=== PATIENT | male | born 1965 | race Two or more races ===

== ENCOUNTER 2024-06-03 09:27 | Emergency (ER) | payer MEDICAID, SELFPAY ==
[2024-06-03 09:28] VITALS: BMI 29.2
[2024-06-03 09:43] VITALS: BP 138/87; PULSE 87; RESP 20; TEMP 36.9; O2SAT 96
[2024-06-03 09:44] VITALS: BMI 29.2
--- NOTE | 2024-06-03 09:45 | XR_ITS ---
Examination: Ultrasound-guided paracentesis Abdominal sonogram limited Date and time of exam: June 03, 2024 1106 hours INDICATIONS: Cirrhosis, increasing ascites and abdominal distention this week Informed consent provided. A timeout was completed verifying correct patient, procedure, site, positioning, and special adequate movement if applicable. Technique: Multiple sonographic images of the abdomen have been obtained. Appropriate area for paracentesis was marked. Local anesthesia is obtained with 1% lidocaine. Yueh catheter is successfully introduced. Findings: Abdominal sonographic images demonstrate sufficient ascitic fluid for paracentesis. After placing the Yueh catheter, 3600 cc of fluid were successfully removed. During and after completion of the procedure the patient appear in satisfactory and stable condition with no complications observed. Estimated blood loss 0 cc Impression: Abdominal ascites Successful ultrasound-guided paracentesis as described above
--- NOTE | 2024-06-03 12:15 | EDNOTE_ITS ---
ED General RME/HPI General Chief complaint: General Adult/Misc Complain Stated complaint: NEEDS ABD DRAINED Time Seen by Provider: 06/03/24 09:28 Arrival date/time: 06/03/24 09:27 58-year-old male with cirrhosis currently on hospice presents to the emergency department requesting paracentesis patient reports he spoke with his hospice provider who reports he can go to the emergency department to get a paracentesis and will make him comfortable. Patient reports no chest pain or shortness of breath patient reports he is only here for paracentesis Limitations: no limitations Related Data Home Medications ?Medication ?Instructions ?Recorded ?Confirmed hydroxyzine pamoate 50 mg capsule 50 mg PO Q6H PRN Anaphylaxis 02/06/19 02/06/19 (Vistaril) magnesium oxide-magnesium amino 400 cap PO 02/06/19 acid chelate 300 mg capsule (Magnesium (oxide/AA chelate)) quetiapine 300 mg tablet 300 mg PO BID 02/06/19 02/06/19 trazodone 100 mg tablet 100 mg PO QDAY 02/06/19 02/06/19 Previous Rx's ?Medication ?Instructions ?Recorded hydroxyzine pamoate 50 mg capsule 50 mg PO BID PRN itching #30 caps 02/06/19 magnesium oxide 400 mg (241.3 mg 400 mg PO QDAY #14 tabs 02/06/19 magnesium) tablet quetiapine 300 mg tablet (Seroquel) 300 mg PO QDAY #15 tabs 02/06/19 trazodone 100 mg tablet 100 mg PO QDAY #14 tabs 02/06/19 quetiapine 300 mg tablet 300 mg PO .qhs #30 tabs 03/08/19 Allergies Allergy/AdvReac Type Severity Reaction Status Date / Time No Known Allergies Allergy Verified 06/03/24 09:30 Review of Systems Review of Systems Systems Reviewed: All systems reviewed, normal except as documented Constitutional Constitutional: Reports system reviewed and no additional complaints, except as documented, Denies fever(s) and Denies headache(s) Eyes Eyes: Reports system reviewed and no additional complaints, except as documented and Denies blurry vision ENT Ears, Nose, Mouth, and Throat: Reports system reviewed and no additional complaints, except as documented, Denies headache(s), Denies nasal congestion and Denies nasal discharge Cardiovascular Cardiovascular: Reports system reviewed and no additional complaints, except as documented, Denies chest pain and Denies dyspnea Respiratory Respiratory: Reports system reviewed and no additional complaints, except as documented, Denies chest congestion, Denies cough and Denies dyspnea Gastrointestinal Gastrointestinal: Reports system reviewed and no additional complaints, except as documented, Reports abdominal pain, Denies nausea and Denies vomiting Integumentary/Breasts Skin/Breast: Reports system reviewed and no additional complaints, except as documented and Denies rash Neurologic Neurologic: Reports system reviewed and no additional complaints, except as documented, Reports as per HPI and Denies headache(s) Past Medical History Past Medical History NEUROLOGIC: Negative Neurological Disorders CARDIAC: Negative Cardiac Disorders or Congestive Heart Failure RESPIRATORY: Positive Asthma and Pneumonia; Negative Chronic Obstructive Pulmonary Disease (COPD) GASTROINTESTINAL: Positive Cirrhosis GENITOURINARY: Negative Genitourinary Disorders or Renal Disease ENDOCRINE: Negative Endocrine Disorders, Diabetes Mellitus Type 1 or Diabetes Mellitus Type 2 HEMATOLOGIC: Negative Sickle Cell Disease OTHER HISTORY: Positive Cancer Family History FAMILY HISTORY: Negative Family Cardiac Disorders Surgical History SURGICAL: Negative Abdominal Surgery Social History SMOKING STATUS: Never smoker ED Exam General Limitations: Present no limitations General appearance: Present alert and in no apparent distress Head Head exam: Present atraumatic Eye Eye exam: Present normal appearance, PERRL and EOMI ENT ENT exam: Present normal exam, normal oropharynx and mucous membranes moist Neck Neck exam: Present normal inspection, full ROM and trachea midline Chest Chest inspection: Present normal inspection and symmetric chest wall rise Respiratory Respiratory exam: Present normal lung sounds bilaterally Cardiovascular Cardiovascular exam: Present regular rate, normal rhythm and normal heart sounds Abdominal Exam Abdominal exam: Present soft, distention, normal bowel sounds and ascites; Absent tenderness, guarding, rebound or rigidity Extremities Exam Extremities exam: Present normal inspection and full ROM Back Exam Back exam: Present normal inspection and full ROM Neurological Exam Neurological exam: Present alert, oriented X3 and CN II-XII intact Psychiatric Psychiatric exam: Present normal affect and normal mood Skin Skin exam: Present warm, dry, intact and normal color Course Quality Measures none Orders Category Date Time Status US paracentesis abd w/image Stat Exams 06/03/24 09:45 Completed Lidocaine 1% Pf 30 ml [Xylocaine 1% Pf 30 ml] Med 06/03/24 11:13 Discontinued 30 ml .ROUTE .STK-MED ONE Vital Signs Vital signs: Vital Signs Temperature 98.4 F 11/19/24 09:43 Pulse Rate 87 06/03/24 09:43 Respiratory Rate 20 06/03/24 09:43 Blood Pressure 138/87 H 06/03/24 09:43 Pulse Oximetry (%) 96 06/03/24 09:43 Oxygen Delivery Method Room Air 06/03/24 09:43 O2 saturation 96% room air within normal limits [facility] Patient data External records reviewed:: [facility] previous records Clinical information provided by:: patient Social determinants that could affect healthcare access:: alcohol use Patient has the following chronic illnesses:: History How is presenting disease/condition affected by chronic disease/condition?: caused by Evaluation data The following diagnostics were reviewed and interpreted by me:: radiology exam(s) Lab and/or radiology exams considered but not ordered:: Radiology obtained Interpretation Summary: Reviewed by me Medications Medications considered but not ordered:: Given Medication administrations:: Medication Administration History Discontinued Medications Lidocaine HCl (Lidocaine Inj Pf 1% 30 Ml Vial) Confirm Administered Dose 30 ml .ROUTE .[facility] Stop: 06/03/24 11:14 Given Consultations Consultation(s) initiated? (list below): No Diagnosis Differential Diagnosis ED Complaint MDM: Encounter for paracentesis, cirrhosis, ascites Most likely diagnosis given after review of the tests above:: Encounter for paracentesis, cirrhosis Admission Indicated Admission indicated?: not indicated Explain why admission is indicated or not indicated:: No criteria Admission Request Was there a request for admission?: No Disposition Plan Disposition Plan: Discharge Discharge Attestation Discharge Attestation: The patient and all family members were given an opportunity to ask questions and understood the discharge instructions. Discharge instructions specifically effects, indications for sooner follow up or return to the emergency department, and the expected course of current diagnosis. Patient condition: Stable Medical Decision Making MDM Narrative MDM Narrative: 58-year-old male with cirrhosis currently on hospice presents to the emergency department requesting paracentesis patient reports he spoke with his hospice provider who reports he can go to the emergency department to get a paracentesis and will make him comfortable. Patient reports no chest pain or shortness of breath patient reports he is only here for paracentesis On exam patient appears chronically ill but not toxic Patient hemodynamically stable Paracentesis completed I spoke with the patient after his paracentesis patient reports he feels better at the time of discharge patient reports no chest pain or shortness of breath Patient discharged home in no distress to follow-up with primary care doctor in the next 24 to 48 hours and for any worsening symptoms to return to the ER immediately Differential Diagnosis Differential Diagnosis: Encounter for paracentesis, cirrhosis, ascites Medical Records Medical records reviewed: Yes I reviewed the patient's medical records. Lab Data Lab results reviewed: Yes I reviewed the patient's lab results. Radiology Data Radiology results reviewed: Yes I reviewed the patient's radiology results. Discharge Plan Plan Patient Disposition: HOME (Self Care) Disposition Comment: Stable Prescriptions/Referrals Prescriptions/Med Rec: No Action quetiapine 300 mg Tablet 300 mg PO BID hydroxyzine pamoate [Vistaril] 50 mg Capsule 50 mg PO Q6H PRN (Reason: Anaphylaxis) trazodone 100 mg Tablet 100 mg PO QDAY Magnesium (oxide/AA chelate) 300 mg Capsule 400 cap PO hydroxyzine pamoate 50 mg capsule 50 mg PO BID PRN (Reason: itching) Qty: 30 0RF quetiapine [Seroquel] 300 mg tablet 300 mg PO QDAY Qty: 15 0RF Rx Instructions: Take 1 tablet by mouth every night at bedtime for psychosis trazodone 100 mg tablet 100 mg PO QDAY Qty: 14 0RF magnesium oxide 400 mg (241.3 mg magnesium) tablet 400 mg PO QDAY Qty: 14 0RF quetiapine 300 mg tablet 300 mg PO .qhs Qty: 30 3RF Referrals: Rajendra Soto MD [Primary Care Provider] - Problem List Clinical Impression: Cirrhosis, Ascites Patient/Caregiver Discharge Instructions Education Materials: Paracentesis Dc Additional Instructions: Please follow up with your primary care doctor in the next 24-48hrs for any worsening symptoms return here immediately Print Language: [place] Citizen Stand Alone Forms: Shyanne Award Info., Patient Portal Info Letter Attestation Attestation The patient was seen by the midlevel practitioner. I, the co-signing physician, was present during the entire ER visit. While I did not physically examine the patient, I was available for consultation as needed.
== END 2024-06-03 12:22 | disposition home or self-care (01) ==
PROVIDERS: Emergency Provider Emergency Medicine; PCP Family Medicine
DX: K74.60 Unspecified cirrhosis of liver (principal); R18.8 Other ascites
CPT/HCPCS: 49083; 99284; C1729

== ENCOUNTER 2024-06-12 04:33 | Emergency (ER) | payer MEDICAID, SELFPAY ==
[2024-06-12 04:44] VITALS: BP 144/86; PULSE 104; RESP 22; TEMP 36.9; O2SAT 97; BMI 29.2
--- NOTE | 2024-06-12 04:48 | PD.EDRME ---
Rapid Medical Screening Exam RME Arrival date/time: 06/12/24 04:33 58M with history of psych and cancer (on hospice) presents to ED requesting para due to ab distention/discomfort. Chief Complaint: General Adult/Misc Complain Vital signs: Vital Signs Temperature 98.5 F 06/12/24 04:44 Pulse Rate 104 H 06/12/24 04:44 Respiratory Rate 22 H 06/12/24 04:44 Blood Pressure 144/86 H 06/12/24 04:44 Pulse Oximetry (%) 97 06/12/24 04:44 Oxygen Delivery Method Room Air 06/12/24 04:44
--- NOTE | 2024-06-12 06:07 | EDNOTE_ITS ---
ED General RME/HPI General Chief complaint: General Adult/Misc Complain Stated complaint: needs to be tapped Time Seen by Provider: 06/12/24 06:07 Arrival date/time: 06/12/24 04:33 Limitations: no limitations RME / HPI RME / HPI narrative: 06/12/24 04:33 58M with history of psych and cancer (on hospice) presents to ED requesting para due to ab distention/discomfort. IR is not available. Patient does not have an emergency condition at this time Related Data Home Medications ?Medication ?Instructions ?Recorded ?Confirmed hydroxyzine pamoate 50 mg capsule 50 mg PO Q6H PRN Anaphylaxis 02/06/19 02/06/19 (Vistaril) magnesium oxide-magnesium amino 400 cap PO 02/06/19 acid chelate 300 mg capsule (Magnesium (oxide/AA chelate)) quetiapine 300 mg tablet 300 mg PO BID 02/06/19 02/06/19 trazodone 100 mg tablet 100 mg PO QDAY 02/06/19 02/06/19 Previous Rx's ?Medication ?Instructions ?Recorded hydroxyzine pamoate 50 mg capsule 50 mg PO BID PRN itching #30 caps 02/06/19 magnesium oxide 400 mg (241.3 mg 400 mg PO QDAY #14 tabs 02/06/19 magnesium) tablet quetiapine 300 mg tablet (Seroquel) 300 mg PO QDAY #15 tabs 02/06/19 trazodone 100 mg tablet 100 mg PO QDAY #14 tabs 02/06/19 quetiapine 300 mg tablet 300 mg PO .qhs #30 tabs 03/08/19 Allergies Allergy/AdvReac Type Severity Reaction Status Date / Time No Known Allergies Allergy Verified 06/03/24 09:30 Review of Systems Review of Systems Systems Reviewed: All systems reviewed, normal except as documented ED Exam General Limitations: Present no limitations General appearance: Present alert Eye Eye exam: Present scleral icterus Chest Chest inspection: Present normal inspection Respiratory Respiratory exam: Present normal lung sounds bilaterally Cardiovascular Cardiovascular exam: Present regular rate and normal rhythm Abdominal Exam Abdominal exam: Present soft, distention and normal bowel sounds Extremities Exam Extremities exam: Present pedal edema Skin Skin exam: Present warm and dry Course Quality Measures none Orders Category Date Time Status US paracentesis abd w/image Stat Exams 06/12/24 04:48 Ordered Vital Signs Vital signs: Vital Signs Temperature 98.5 F 06/12/24 04:44 Pulse Rate 104 H 06/12/24 04:44 Respiratory Rate 22 H 06/12/24 04:44 Blood Pressure 144/86 H 06/12/24 04:44 Pulse Oximetry (%) 97 06/12/24 04:44 Oxygen Delivery Method Room Air 06/12/24 04:44 [facility] Patient data External records reviewed:: [facility] previous records Clinical information provided by:: patient Social determinants that could affect healthcare access:: none Patient has the following chronic illnesses:: Cirrhosis How is presenting disease/condition affected by chronic disease/condition?: caused by Evaluation data The following diagnostics were reviewed and interpreted by me:: other (specify) Lab and/or radiology exams considered but not ordered:: NA Interpretation Summary: NA Medications Medications considered but not ordered:: NA Medication administrations:: NA Consultations Consultation(s) initiated? (list below): No Diagnosis Differential Diagnosis ED Complaint MDM: NA Most likely diagnosis given after review of the tests above:: NA Admission Indicated Admission indicated?: not indicated Explain why admission is indicated or not indicated:: NA Admission Request Was there a request for admission?: No Disposition Plan Disposition Plan: Discharge Discharge Attestation Discharge Attestation: The patient and all family members were given an opportunity to ask questions and understood the discharge instructions. Discharge instructions specifically effects, indications for sooner follow up or return to the emergency department, and the expected course of current diagnosis. Patient condition: Stable Medical Decision Making Differential Diagnosis Differential Diagnosis: NA Discharge Plan Plan Patient Disposition: HOME (Self Care) Patient condition on transfer: Stable Prescriptions/Referrals Prescriptions/Med Rec: No Action quetiapine 300 mg Tablet 300 mg PO BID hydroxyzine pamoate [Vistaril] 50 mg Capsule 50 mg PO Q6H PRN (Reason: Anaphylaxis) trazodone 100 mg Tablet 100 mg PO QDAY Magnesium (oxide/AA chelate) 300 mg Capsule 400 cap PO hydroxyzine pamoate 50 mg capsule 50 mg PO BID PRN (Reason: itching) Qty: 30 0RF quetiapine [Seroquel] 300 mg tablet 300 mg PO QDAY Qty: 15 0RF Rx Instructions: Take 1 tablet by mouth every night at bedtime for psychosis trazodone 100 mg tablet 100 mg PO QDAY Qty: 14 0RF magnesium oxide 400 mg (241.3 mg magnesium) tablet 400 mg PO QDAY Qty: 14 0RF quetiapine 300 mg tablet 300 mg PO .qhs Qty: 30 3RF Referrals: Sudhir Mclaughlin PA-C [Primary Care Provider] - In 1 week Problem List Clinical Impression: Ascites Patient/Caregiver Discharge Instructions Discharge Activity: activity as tolerated Education Materials: ED Ascites Print Language: Slovak Stand Alone Forms: Shyanne Award Info., Patient Portal Info Letter
== END 2024-06-12 07:05 | disposition home or self-care (01) ==
PROVIDERS: Emergency Provider Emergency Medicine; PCP Physician Assistant
DX: R18.8 Other ascites (principal)
CPT/HCPCS: 80053; 85025; 85610; 85730; 99284

== ENCOUNTER 2024-06-16 09:18 | Emergency (ER) | payer MEDICAID, SELFPAY ==
[2024-06-16 09:27] VITALS: BP 123/87; PULSE 94; RESP 22; TEMP 36.8; O2SAT 95; BMI 31.6
--- NOTE | 2024-06-16 09:51 | PD.EDRME ---
Rapid Medical Screening Exam RME Arrival date/time: 06/16/24 09:18 58-year-old male with cirrhosis currently on hospice presents to the emergency department requesting paracentesis. I have greeted and performed a focused initial assessment of this patient. Initial appropriate labs ordered at this time. A comprehensive ED assessment and evaluation of the patient and analysis of all test and completion of medical decision making process will be conducted by additional ED provider. Chief Complaint: Abdominal Pain Time Seen by Provider: 06/16/24 09:37 Vital signs: Vital Signs Temperature 98.2 F 06/16/24 09:27 Pulse Rate 94 06/16/24 09:27 Respiratory Rate 22 H 06/16/24 09:27 Blood Pressure 123/87 H 06/16/24 09:27 Pulse Oximetry (%) 95 06/16/24 09:27 Oxygen Delivery Method Room Air 06/16/24 09:27
[2024-06-16 12:02] LABS: INR 1.4 (0.9-1.3); Prothrombin Time 15.2 Seconds (9.0-12.2)
[2024-06-16 12:30] LABS: Basophils % (Auto) 1 % (0-2.5); Eosinophils # (Auto) 0.1 Thou/mm3 (0.0-0.5); Eosinophils % (Auto) 2 % (0-10); Hemoglobin 12.5 g/dL (13.5-16.0); Immature Granulocytes % (Auto) 0 % (0-0); Immature Granulocytes Auto 0.03 Thou/mm3 (0.00-0.00); Lymphocytes # (Auto) 0.7 Thou/mm3 (1.0-4.8); Lymphocytes % (Auto) 8 % (10-50); Mean Corpuscular HGB Conc 33.8 g/dl (31.0-37.0); Mean Corpuscular Hemoglobin 32.6 pg (25.0-35.0); Mean Corpuscular Volume 96 fL (80-100); Monocytes # (Auto) 0.6 Thou/mm3 (0.0-0.8); Monocytes % (Auto) 7 % (0-12); Neutrophils # (Auto) 7.1 Thou/mm3 (1.8-7.7); Neutrophils % (Auto) 82 % (37-80); Nucleated Red Blood Cell % 0 /100 WBC (0); Platelet Count 94 Thou/mm3 (140-440); RDW Standard Deviation 55.8 fL (35.1-43.9); Red Blood Count 3.84 Miln/mm3 (4.50-5.90); White Blood Count 8.6 Thou/mm3 (3.8-10.6)
--- NOTE | 2024-06-16 13:27 | PC.NURSE ---
PATIENT OBSERVED BY RN AND SECURITY GETTING INTO VEHICLE AND LEAVING.
== END 2024-06-16 13:29 | disposition left against medical advice (07) ==
PROVIDERS: Nurse Practitioner Primary Care; Emergency Provider Emergency Medicine; PCP Family Medicine
DX: R10.9 Unspecified abdominal pain (principal); Z53.29 Procedure and treatment not carried out because of patient's decision for other reasons
CPT/HCPCS: 36415; 85025; 85610; 99284

== ENCOUNTER 2024-07-09 13:00 | Emergency (ER) | payer MEDICAID, SELFPAY ==
[2024-07-09 13:00] VITALS: BP 104/62; PULSE 119; RESP 17; TEMP 36.8; O2SAT 95
--- NOTE | 2024-07-09 13:18 | EDNOTE_ITS ---
<Statement entered by Bernie Rene MD - 07/10/24 17:07> As co-signing physician, I was present and available for consult prn. I concur with the plan and care as documented by the midlevel provider. ED General RME/HPI General Chief complaint: Weakness Stated complaint: FALL/ WEAKNESS Time Seen by Provider: 07/09/24 13:16 Arrival date/time: 07/09/24 13:00 CC: Weakness back pain HPI patient is on hospice DNR/DNI per report from EMS who reports stable vital signs patient was found by family members on the floor hunched over in the bathroom after being too weak, and into much pain to get up. Patient has a history of ascites cirrhosis. EMS reports the patient is a Glascow coma of 15 however when I spoke with him the patient is just nodding to answers. At 1349 after the patient was settled into a bed the patient states his back pain is getting better , states he takes morphine for pain. He is requesting a little bit more maybe morphine to make him feel even better. Related Data Home Medications ?Medication ?Instructions ?Recorded ?Confirmed hydroxyzine pamoate 50 mg capsule 50 mg PO Q6H PRN Anaphylaxis 02/06/19 02/06/19 (Vistaril) magnesium oxide-magnesium amino 400 cap PO 02/06/19 acid chelate 300 mg capsule (Magnesium (oxide/AA chelate)) quetiapine 300 mg tablet 300 mg PO BID 02/06/19 02/06/19 trazodone 100 mg tablet 100 mg PO QDAY 02/06/19 02/06/19 Previous Rx's ?Medication ?Instructions ?Recorded hydroxyzine pamoate 50 mg capsule 50 mg PO BID PRN itching #30 caps 02/06/19 magnesium oxide 400 mg (241.3 mg 400 mg PO QDAY #14 tabs 02/06/19 magnesium) tablet quetiapine 300 mg tablet (Seroquel) 300 mg PO QDAY #15 tabs 02/06/19 trazodone 100 mg tablet 100 mg PO QDAY #14 tabs 02/06/19 quetiapine 300 mg tablet 300 mg PO .qhs #30 tabs 03/08/19 Allergies Allergy/AdvReac Type Severity Reaction Status Date / Time No Known Allergies Allergy Verified 06/16/24 09:19 Review of Systems Review of Systems ROS Unobtainable: unobtainable due to mental status Narrative Review of Systems: GEN: No fever, no chills, no weight loss EYES: No discharge, no visual changes, no pain HEENT: No ear pain, no congestion, no sore throat PULM: No shortness of breath, no cough, no congestion CV: No chest pain, no dyspnea on exertion, no palpitations GI: No nausea, no vomiting, no diarrhea, no pain, no constipation : No frequency, no urgency, no dysuria MUSC/SKEL: No joint pain, no back pain SKIN: No rash PSYCH: No hallucinations, no depression HEME/LYMPH: No easy bleeding or bruising tendencies NEURO: + weakness, no headache Past Medical History Past Medical History NEUROLOGIC: Negative Neurological Disorders CARDIAC: Negative Cardiac Disorders or Congestive Heart Failure RESPIRATORY: Positive Asthma and Pneumonia; Negative Chronic Obstructive Pulmonary Disease (COPD) GASTROINTESTINAL: Positive Cirrhosis GENITOURINARY: Negative Genitourinary Disorders or Renal Disease ENDOCRINE: Negative Endocrine Disorders, Diabetes Mellitus Type 1 or Diabetes Mellitus Type 2 HEMATOLOGIC: Negative Sickle Cell Disease OTHER HISTORY: Positive Cancer Family History FAMILY HISTORY: Negative Family Cardiac Disorders Surgical History SURGICAL: Negative Abdominal Surgery Social History SMOKING STATUS: Never smoker ED Exam Narrative Physical exam: [General: Thin, emaciated, ill kempt, fecalith covered but appears not in any acute distress. Head normocephalic HEENT: Mouth lips oral mucosa dry and pale eyes: Sclera is icteric pupils tracking PERRLA EOMs intact. Nose, dry no rhinorrhea. Neck is supple nontender Chest equal chest rise nontender to palpation Respiratory: Clear to auscultation no wheezes crackles or rubs CV: Rate rhythm is regular no murmurs rubs or clicks Abdomen is soft nontender no masses positive bowel sounds all 4 quadrants Back: No CVA tenderness no spinous process tenderness from cervical spine thoracic and lumbar spine Skin: Jaundice, intact no open lesions induration ulcerations Extremities: Moving all extremity weakly against resistance. Cap refill less than 2 seconds neurosensory intact bilateral nonpitting lower extremity edema. Neuro: Awake alert answering simple questions with nodding yes or no and mouthing words. Course Course Course Narrative: At 1515 the patient was asked what he would like me to do the patient states I want to feel better . I explained to him that have given him pain medications the patient states he is pain is better. The patient is giving me no specific instructions will include more fluids. Additional liter of fluid 1 mg of Ativan for morphine given to the patient at this time patient will be discharged back home again.PT case discussed wiht Dr Rene Quality Measures none Orders Category Date Time Status Saline [Insert IV] NOW Care 07/09/24 13:50 Active LORazepam [Ativan Inj] Med 07/09/24 16:51 Discontinued 1 mg IVP X1 ONE Morphine Inj Med 07/09/24 16:51 Discontinued 2 mg IVP X1 ONE Morphine Inj Med 07/09/24 13:50 Discontinued 4 mg IVP X1 ONE Ondansetron Inj [Zofran Inj] Med 07/09/24 13:50 Discontinued 4 mg IV X1 ONE Sodium Chloride 0.9% 1000 ml [Ns] 1,000 ml Med 07/09/24 15:19 Discontinued IV 999 mls/hr Sodium Chloride 0.9% 500 ml [Ns] 500 ml Med 07/09/24 13:51 Discontinued IV 999 mls/hr Vital Signs Vital signs: Vital Signs Temperature 98.2 F 07/09/24 13:00 Pulse Rate 119 H 07/09/24 13:00 Respiratory Rate 17 07/09/24 13:00 Blood Pressure 104/62 07/09/24 13:00 Pulse Oximetry (%) 95 07/09/24 13:00 Oxygen Delivery Method Room Air 07/09/24 13:00 [facility] Patient data External records reviewed:: [facility] previous records Clinical information provided by:: patient Social determinants that could affect healthcare access:: none Patient has the following chronic illnesses:: Ascites cirrhosis end-stage liver disease How is presenting disease/condition affected by chronic disease/condition?: exacerbated by Evaluation data The following diagnostics were reviewed and interpreted by me:: other (specify) (None) Lab and/or radiology exams considered but not ordered:: None Interpretation Summary: Patient is a DNR DNI hospice care per report. Patient given fluids and pain medication will be discharged back home. Medications Medications considered but not ordered:: None Medication administrations:: Medication Administration History Discontinued Medications Sodium Chloride (Ns) 500 mls @ 999 mls/hr IV .Q31M ONE Stop: 07/09/24 14:21 Last Infusion: 07/09/24 14:55 Dose: Infused Documented By: Admin: 07/09/24 14:21 Dose: 999 mls/hr Documented By: RENEE Sodium Chloride (Ns) 1,000 mls @ 999 mls/hr IV .Q1H1M ONE Stop: 07/09/24 16:19 Last Admin: 07/09/24 15:38 Dose: 999 mls/hr Documented By: LF Lorazepam (Lorazepam 2 Mg/Ml Vial) 1 mg IVP X1 ONE Stop: 07/09/24 16:52 Last Admin: 07/09/24 17:34 Dose: 1 mg Documented By: LF Morphine Sulfate (Morphine Sulf Inj 10 Mg/Ml Vial) 4 mg IVP X1 ONE Stop: 07/09/24 13:51 Last Admin: 07/09/24 14:22 Dose: 4 mg Documented By: LF Morphine Sulfate (Morphine Sulf Inj 10 Mg/Ml Vial) 2 mg IVP X1 ONE Stop: 07/09/24 16:52 Last Admin: 07/09/24 17:37 Dose: 2 mg Documented By: LF Ondansetron HCl (Ondansetron Inj 2 Mg/Ml Inj 2 Ml) 4 mg IV X1 ONE; Protocol Stop: 07/09/24 13:51 Last Admin: 07/09/24 14:22 Dose: 4 mg Documented By: LF None Consultations Consultation(s) initiated? (list below): No Diagnosis Differential Diagnosis ED Complaint MDM: Back pain, weakness liver cancer Most likely diagnosis given after review of the tests above:: Back pain weakness Admission Indicated Admission indicated?: indicated Explain why admission is indicated or not indicated:: Stable for discharge Admission Request Was there a request for admission?: No Disposition Plan Disposition Plan: Discharge Discharge Attestation Discharge Attestation: The patient and all family members were given an opportunity to ask questions and understood the discharge instructions. Discharge instructions specifically effects, indications for sooner follow up or return to the emergency department, and the expected course of current diagnosis. Patient condition: Stable Medical Decision Making Differential Diagnosis Differential Diagnosis: Back pain, weakness liver cancer Discharge Plan Plan Patient Disposition: HOME (Self Care) Patient condition on transfer: Stable Prescriptions/Referrals Prescriptions/Med Rec: No Action quetiapine 300 mg Tablet 300 mg PO BID hydroxyzine pamoate [Vistaril] 50 mg Capsule 50 mg PO Q6H PRN (Reason: Anaphylaxis) trazodone 100 mg Tablet 100 mg PO QDAY Magnesium (oxide/AA chelate) 300 mg Capsule 400 cap PO hydroxyzine pamoate 50 mg capsule 50 mg PO BID PRN (Reason: itching) Qty: 30 0RF quetiapine [Seroquel] 300 mg tablet 300 mg PO QDAY Qty: 15 0RF Rx Instructions: Take 1 tablet by mouth every night at bedtime for psychosis trazodone 100 mg tablet 100 mg PO QDAY Qty: 14 0RF magnesium oxide 400 mg (241.3 mg magnesium) tablet 400 mg PO QDAY Qty: 14 0RF quetiapine 300 mg tablet 300 mg PO .qhs Qty: 30 3RF Referrals: Rajendra Soto MD [Primary Care Provider] - In 1 week Problem List Clinical Impression: Intractable back pain, Cancer of liver Patient/Caregiver Discharge Instructions Education Materials: ED Chronic Pain Additional Instructions: Take the morphine is much as she needed at home for pain relief make sure you drink plenty of fluids. Print Language: Bur[place]ian Stand Alone Forms: Shyanne Award Info., Patient Portal Info Letter PA/DIAMOND Supervising Physician BRENT/DIAMOND Supervising Physician: Kecia Johns ENP
[2024-07-09 13:20] VITALS: PULSE 107; RESP 16; O2SAT 94; BMI 21.4
[2024-07-09] MEDS: SODIUM CHLORIDE 0.9% 500 ML 500 ML 999 ML IV (14:21)
[2024-07-09] MEDS: ONDANSETRON INJ 2 MG/ML INJ 2 ML 4 MG IV (14:22)
[2024-07-09] MEDS: MORPHINE SULF INJ 10 MG/ML VIAL 4 MG IVP (14:22)
[2024-07-09 14:53] VITALS: BP 103/62; PULSE 103; RESP 18; TEMP 37; O2SAT 95
--- NOTE | 2024-07-09 15:05 | PC.NURSE ---
PATIENTS DAUGHTER CONTACTED, I CONFIRMED WITH HER THAT PT IS IN HOSPICE CARE, DNR/DNI. SHE CONFIRMED HOSPICE STATUS. I INFORMED HER OF WHAT WE DID SO FAR. IVF/PAIN AND NAUSEA MEDS. WANTED TO CONFIRM HOW MUCH SHE WOULD LIKE US TO DO OTHER THAN COMFORT CARE. DAUGHTER STATES TO ASK PT WHAT HE WANTS AND IF HE CANT TALK TO CALL HER BACK. STATES SHE'S AT HOME WITH HER KIDS AND CANT COME RIGHT NOW.
[2024-07-09] MEDS: SODIUM CHLORIDE 0.9% 1000 ML 1,000 ML 999 ML IV (15:38)
[2024-07-09 17:00] VITALS: BP 110/62; PULSE 105; RESP 17; TEMP 36.7; O2SAT 96
[2024-07-09] MEDS: LORazepam 2 MG/ML VIAL 1 MG IVP (17:34)
[2024-07-09] MEDS: MORPHINE SULF INJ 10 MG/ML VIAL 2 MG IVP (17:37)
[2024-07-09 19:20] VITALS: BP 107/65; PULSE 97; RESP 17; TEMP 37.2; O2SAT 98
== END 2024-07-09 20:36 | disposition home or self-care (01) ==
PROVIDERS: Emergency Provider Emergency Medicine; PCP Family Medicine
DX: M54.9 Dorsalgia, unspecified (principal); C22.8 Malignant neoplasm of liver, primary, unspecified as to type
CPT/HCPCS: 96361; 96374; 96375; 96376; 99284; J2060; J2270; J2405; J7030; J7040